=== PATIENT | female | born 1970 | race Hispanic/Latino ===

== ENCOUNTER 2017-05-04 06:28 | Day surgery (SDC) | payer SELFPAY ==
--- NOTE | 2017-05-04 10:06 | CP.SDSHP ---
Same Day Surgery H & P - History Proposed Procedure: US guided thyroid FNA Pre-Op Diagnosis: thyroid nodule - Allergies Allergies: Allergies shellfish derived Allergy (Verified 05/04/17 07:51) RASH - Physical Exam Vital Signs: Vital Signs 05/04/17 05/04/17 07:53 09:35 Temperature 98.6 F 99.7 F H Pulse Rate 88 81 Respiratory 20 18 Rate Blood Pressure 155/97 H 132/80 O2 Sat by Pulse 97 97 Oximetry - Impression Impression: 47 yo female w/ suspicious left thyroid nodule; plan us guided fna - Date & Time Date: 05/04/17 Time: 09:45 Short Stay Discharge - Short Stay Discharge Admitting Diagnosis/Reason for Visit: E04.1 Disposition: HOME/ ROUTINE Referrals: John Allen MD [Primary Care Provider] -
--- NOTE | 2017-05-04 10:24 | PCM.SURG1 ---
Surgeon's Initial Post Op Note - Surgeon's Notes Surgeon: Brayan Hays MD Tumbler Machine Operator: None Type of Anesthesia: Local Pre-Operative Diagnosis: thyroid nodule Operative Findings: left lower pole taller than wide thyroid nodule Post-Operative Diagnosis: same Operation Performed: us guided thyroid fna x1 Specimen/Specimens Removed: left lower pole fna Estimated Blood Loss: EBL {In ML}: 0 Date of Surgery/Procedure: 05/04/17 Time of Surgery/Procedure: 10:00
--- NOTE | 2017-05-04 12:08 | US ---
PROCEDURE: ULTRASOUND-GUIDED THYROID BIOPSY CLINICAL HISTORY: 47-year-old female with suspicious thyroid nodules is referred to Interventional Radiology for ultrasound-guided thyroid FNA. COMPARISON: Thyroid ultrasound dated 03/30/2017 PROCEDURE: 1. Ultrasound-guided thyroid FNA x1. PRE-PROCEDURE FINDINGS: 1. Left lower pole taller than wide solid nodule. POST-PROCEDURE FINDINGS: 1. No evidence of post-procedural complication. INTERVENTIONAL RADIOLOGIST: Brayan Hays M.D. (the attending was present for the entire procedure.) ANESTHESIA: None. MEDICATION: Lidocaine 1% for local subcutaneous analgesia. COMPLICATIONS: None. PROCEDURE DESCRIPTION AND FINDINGS: The risks, benefits, alternatives and possible complications of the procedure were fully discussed; all questions were answered and informed consent was obtained. The patient was brought into the interventional suite and a pre-procedure 'time-out' was performed. The patient was placed on the ultrasound table in the supine position and the neck was passively extended. The anterior neck was prepped and draped in the usual sterile fashion. Maximum sterile barrier precautions were maintained throughout the entire procedure. Preliminary focused ultrasound images of the thyroid demonstrate the previously identified nodule referred for biopsy. Following subcutaneous infiltration of lidocaine 1% for local analgesia, under ultrasound guidance, utilizing separate needles, multiple fine needle aspirations were performed of the left lower pole thyroid nodule, with real-time visualization of needle entry. The ultrasound images were permanently recorded and sent to the PACS. Adequate hemostasis was achieved utilizing manual compression. A sterile adhesive dressing was applied over the puncture sites. The patient tolerated the procedure well without immediate post-procedure complications and was discharged home in stable condition. IMPRESSION: Successful ultrasound-guided fine needle aspiration of the left lower pole thyroid nodule.
[2017-05-04 12:28] VITALS: BMI 22.1
[2017-05-04 13:00] VITALS: BP 142/78; PULSE 82; RESP 20; TEMP 99; O2SAT 98
== END 2017-05-04 12:30 | disposition home or self-care (01) ==
LOC: H.OPSURG 06:28
PROVIDERS: ATTEND Family Medicine
DX: E04.1 Nontoxic single thyroid nodule (principal)